=== PATIENT | female | born 2000 | race Hispanic/Latino ===

== ENCOUNTER 2019-11-06 23:05 | Emergency (ER) | payer OTHER, SELFPAY ==
[2019-11-07 00:10] LABS: Urine Blood 1+ (NEG); Urine Glucose NEGATIVE (NEG); Urine Protein NEGATIVE (NEG); Urine pH 7.5 (5.0-7.0)
[2019-11-07 00:24] LABS: Absolute Lymphocytes (CBC) 2.5 K/uL (0.7-4.9); Basophils % 0.6 % (0-1.3); Lymphocytes % 31.5 % (15.3-44.8); MPV 8.5 fL (7.6-11.3); RBC Red Blood Cell Count 4.54 M/uL (3.86-4.86)
[2019-11-07 00:39] LABS: ALT/SGPT 17 U/L (12-78); AST/SGOT 8 U/L (15-37); Albumin 4.3 g/dL (3.4-5.0); Alkaline Phosphatase 58 U/L (45-117); BUN Blood Urea Nitrogen 11 mg/dL (7-18); Bicarbonate 25 mmol/L (21-32); Bilirubin Direct < 0.1 mg/dL (0-0.2); Bilirubin Total 0.3 mg/dL (0.2-1.0); Glucose Level 96 mg/dL (74-106); Potassium 3.4 mmol/L (3.5-5.1); Protein, Total 8.7 g/dL (6.4-8.2); Sodium Level 139 mmol/L (136-145); Troponin (Emerg Dept Use Only) < 0.02 ng/mL (0.0-0.045)
--- NOTE | 2019-11-07 00:55 | ER ---
Nurse's Notes [facility] Name: Merlene Mitchell Age: 19 yrs Sex: Female : 2000 Arrival Date: 11/06/2019 Time: 23:06 Bed 18 Private MD: Diagnosis: Chest pain, unspecified;Palpitations Presentation: 11/05 23:17 Chief complaint: Patient states: chest pain at 7pm, feels like heart is squeezing, rv 6/10, with mild SOB, left side of the anterior chest wall. Coronavirus screen: Client denies travel out of the [place] in the last 14 days. At this time, the client does not indicate any symptoms associated with coronavirus-19. Ebola Screen: No symptoms or risks identified at this time. Initial Sepsis Screen: Does the patient meet any 2 criteria? No. Patient's initial sepsis screen is negative. Does the patient have a suspected source of infection? No. Patient's initial sepsis screen is negative. Risk Assessment: Do you want to hurt yourself or someone else? Patient reports no desire to harm self or others. Onset of symptoms was November 06, 2019 at 19:00. 23:17 Method Of Arrival: Ambulatory rv 23:17 Acuity: GURJIT 3 rv Triage Assessment: 23:20 General: Appears comfortable, Behavior is calm, cooperative. Pain: Complains of pain in rv anterior aspect of left upper chest Pain does not radiate. Pain currently is 0 out of 10 on a pain scale. Quality of pain is described as squeezing. EENT: No signs and/or symptoms were reported regarding the EENT system. Neuro: Level of Consciousness is awake, alert, obeys commands, Oriented to person, place, time, situation. Cardiovascular: Patient's skin is warm and dry. Respiratory: Airway is patent Respiratory effort is even, unlabored, Breath sounds are clear bilaterally. Derm: Skin is intact. 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 - Social history:: Smoking status: Patient denies any tobacco usage or history of. Screenin:22 Abuse screen: Denies threats or abuse. Denies injuries from another. Nutritional rv screening: No deficits noted. Tuberculosis screening: No symptoms or risk factors identified. Fall Risk None identified. Assessment: 23:58 Pain: Complains of pain in anterior aspect of right upper chest, anterior aspect of ll2 left upper chest, xyphoid area and mid-sternal area Quality of pain is described as pressure, sharp, shooting, Pain began suddenly, 4 hours ago. Is lasting 30 minutes. 23:59 Also complains of no other symptoms. General: Appears in no apparent distress. Behavior ll2 is calm, cooperative, appropriate for age. Neuro: Level of Consciousness is awake, alert, obeys commands, Oriented to person, place, time, situation. Cardiovascular: Capillary refill < 3 seconds Patient's skin is warm and dry. Chest pain is described as mild, quality is sharp, stabbing, is located in anterior began 4 hours prior to arrival. Respiratory: Airway is patent Respiratory effort is even, unlabored, Respiratory pattern is regular, symmetrical. GI: No signs and/or symptoms were reported involving the gastrointestinal system. : No signs and/or symptoms were reported regarding the genitourinary system. EENT: No signs and/or symptoms were reported regarding the EENT system. Derm: Skin is intact, is healthy with good turgor, Skin is dry, Skin is pink, warm \\T\\ dry. Skin temperature is warm. Musculoskeletal: Circulation, motion, and sensation intact. Range of motion: intact in all extremities. 11/06 00:03 General: pt states, "around 7 pm i was just sitting on the couch and i began having ll2 chest pains. my heart rate was high, but it only lasted about thirty minutes." . 00:46 Reassessment: No changes from previously documented assessment. Patient and/or family ll2 updated on plan of care and expected duration. Pain level reassessed. Patient is alert, oriented x 3, equal unlabored respirations, skin warm/dry/pink. Patient denies pain at this time. Vital Signs: 11/05 23:17 BP 135 / 82; Pulse 81; Resp 17; Temp 98.4; Pulse Ox 100% ; Weight 54.43 kg; Height 5 rv ft. 2 in. (157.48 cm); Pain 0/10; 11/06 00:02 BP 128 / 89; Pulse 86; Resp 14; Temp 98.4; Pulse Ox 100% on R/A; Pain 0/10; ll2 00:30 BP 121 / 73; Pulse 72; Resp 15; Pulse Ox 99% on R/A; Pain 0/10; ll2 09 23:17 Body Mass Index 21.95 (54.43 kg, 157.48 cm) rv ED Course: 11/05 23:06 Patient arrived in ED. am2 23:18 Gutierrez García NP is PHCP. pm1 23:18 Aldair Oliva MD is Attending Physician. pm1 23:19 Triage completed. rv 23:20 Arm band placed on right wrist. Patient placed in the treatment room, on a stretcher, rv Patient notified of wait time. 23:22 Patient has correct armband on for positive identification. Bed in low position. Call rv light in reach. Side rails up X 1. Pulse ox on. NIBP on. 23:22 Patient maintains SpO2 saturation greater than 95% on room air. rv 23:35 Annalee Harris, DEMETRIA is Primary Nurse. ll2 11/06 00:06 XRAY Chest (1 view) In Process Unspecified. EDMS 00:12 Placed in gown. public health engineer on. ll2 00:13 Inserted saline lock: 20 gauge in right antecubital area, using aseptic technique. ll2 00:14 Urine collected: EKG done. ll2 01:10 No provider procedures requiring assistance completed. IV discontinued, intact, ll2 bleeding controlled, No redness/swelling at site. Pressure dressing applied. Administered Medications: No medications were administered Outcome: 00:55 Discharge ordered by . pm1 01:10 Discharged to home ambulatory. ll2 01:10 Condition: stable 01:10 Discharge instructions given to patient, Instructed on discharge instructions, follow up and referral plans. Demonstrated understanding of instructions, follow-up care. 01:11 Patient left the ED. ll2 Signatures: Dispatcher [employer] EDAK Gutierrez García NP MANAGER OF ALLIED HEALTH SERVICES pm1 Nicolasa Owens am2 Kody Kwan RN RN rv Annalee Harris, DEMETRIA RN ll2
--- NOTE | 2019-11-07 00:55 | EDPHYS ---
Physician Documentation [facility] Name: Merlene Mitchell Age: 19 yrs Sex: Female : 2000 Arrival Date: 11/06/2019 Time: 23:06 Bed 18 Private MD: ED Physician Aldair Oliva HPI: 11/05 23:46 This 19 yrs old Female presents to ER via Ambulatory with complaints of Chest pm1 Pain, Palpitations. 23:46 The patient or guardian reports chest pain that is located primarily in the mid-sternal pm1 area. The pain does not radiate. Associated signs and symptoms: Pertinent positives: palpitations, Pertinent negatives: abdominal pain, cough, diaphoresis, headache, nausea, shortness of breath, vomiting. Duration: The patient or guardian reports a single episode, that is now resolved, that lasted 2 minute(s) occurred at 1900 today. Modifying factors: The symptoms are alleviated by nothing. the symptoms are aggravated by nothing. Severity of pain: in the emergency department the pain has resolved. The patient has not experienced similar symptoms in the past. 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 - Social history:: Smoking status: Patient denies any tobacco usage or history of. ROS: 23:46 Constitutional: Negative for fever, chills, and weight loss. pm1 23:46 Respiratory: Negative for shortness of breath, cough, wheezing, and pleuritic chest pain, Abdomen/GI: Negative for abdominal pain, nausea, vomiting, diarrhea, and constipation, Back: Negative for injury and pain, MS/Extremity: Negative for injury and deformity, Skin: Negative for injury, rash, and discoloration, Neuro: Negative for headache, weakness, numbness, tingling, and seizure. 23:46 Cardiovascular: Positive for chest pain, palpitations, Negative for edema, orthopnea. Exam: 23:46 Constitutional: This is a well developed, well nourished patient who is awake, alert, pm1 and in no acute distress. Head/Face: Normocephalic, atraumatic. Neck: Trachea midline, no thyromegaly or masses palpated, and no cervical lymphadenopathy. Supple, full range of motion without nuchal rigidity, or vertebral point tenderness. No Meningismus. Chest/axilla: Normal chest wall appearance and motion. Nontender with no deformity. No lesions are appreciated. 23:46 Skin: Warm, dry with normal turgor. Normal color with no rashes, no lesions, and no evidence of cellulitis. MS/ Extremity: Pulses equal, no cyanosis. Neurovascular intact. Full, normal range of motion. 23:46 Cardiovascular: Exam negative for acute changes, Rate: normal, Rhythm: regular, Pulses: no pulse deficits are appreciated. 23:46 Respiratory: Exam negative for acute changes, respiratory distress, shortness of breath. 23:46 Neuro: Exam negative for acute changes, Orientation: is normal, Mentation: is normal, Motor: is normal, moves all fours. Vital Signs: 23:17 BP 135 / 82; Pulse 81; Resp 17; Temp 98.4; Pulse Ox 100% ; Weight 54.43 kg; Height 5 rv ft. 2 in. (157.48 cm); Pain 0/10; 11/06 00:02 BP 128 / 89; Pulse 86; Resp 14; Temp 98.4; Pulse Ox 100% on R/A; Pain 0/10; ll2 00:30 BP 121 / 73; Pulse 72; Resp 15; Pulse Ox 99% on R/A; Pain 0/10; ll2 11/05 23:17 Body Mass Index 21.95 (54.43 kg, 157.48 cm) rv MDM: 11/05 23:18 Patient medically screened. pm1 11/06 00:54 Data reviewed: vital signs. Data interpreted: Pulse oximetry: on room air is 99 %. pm1 Interpretation: normal. Counseling: I had a detailed discussion with the patient and/or guardian regarding: the historical points, exam findings, and any diagnostic results supporting the discharge/admit diagnosis, lab results, radiology results, the need for outpatient follow up, to return to the emergency department if symptoms worsen or persist or if there are any questions or concerns that arise at home. 11/05 23:26 Order name: Basic Metabolic Panel; Complete Time: 00:54 pm1 11/05 23:26 Order name: CBC with Diff; Complete Time: 00:32 pm1 11/05 23:26 Order name: LFT's; Complete Time: 00:54 pm1 11/05 23:26 Order name: Troponin (emerg Dept Use Only); Complete Time: 00:54 pm1 11/05 23:26 Order name: UDS; Complete Time: 01:04 pm1 11/05 23:59 Order name: Urine Dipstick--Ancillary (enter results); Complete Time: 00:32 ar5 11/05 23:26 Order name: XRAY Chest (1 view) pm11/05 23:26 Order name: EKG; Complete Time: 23:27 pm11/05 23:26 Order name: Cardiac monitoring; Complete Time: 00:12 pm11/05 23:26 Order name: EKG - Nurse/Tech; Complete Time: 00:12 pm1 11/05 23:26 Order name: IV Saline Lock; Complete Time: 00:12 pm1 11/05 23:26 Order name: Labs collected and sent; Complete Time: 00:12 pm11/05 23:59 Order name: Urine --Ancillary (enter results); Complete Time: 00:32 ar5 11/05 23:26 Order name: O2 Sat Monitoring; Complete Time: 00:12 pm11/05 23:26 Order name: Urine Dipstick-Ancillary (obtain specimen); Complete Time: 23:57 pm1 11/05 23:26 Order name: Urine Test (obtain specimen); Complete Time: 23:57 pm1 Administered Medications: No medications were administered Disposition: 07:03 Co-signature as Attending Physician, Aldair Oliva MD I agree with the assessment and tw4 plan of care. Disposition: 11/07/19 00:55 Discharged to Home. Impression: Chest pain, unspecified, Palpitations. - Condition is Stable. - Discharge Instructions: Nonspecific Chest Pain, Palpitations. - Medication Reconciliation Form, Thank You Letter, Antibiotic Education, Prescription Opioid Use form. - Follow up: Emergency Department; When: As needed; Reason: Worsening of condition. Follow up: Private Physician; When: 2 - 3 days; Reason: Recheck today's complaints, Continuance of care, Re-evaluation by your physician. - Problem is new. - Symptoms have improved. Signatures: Dispatcher [employer] EDMS Gutierrez García, PAINT LINE OPERATOR PAINT LINE OPERATOR pm1 Aldair Oliva MD MD tw4 Kody Kwan RN RN Annalee Harris, RN RN ll2 Corrections: (The following items were deleted from the chart) 01:11 00:55 11/07/2019 00:55 Discharged to Home. Impression: Chest pain, unspecified; ll2 Palpitations. Condition is Stable. Forms are Medication Reconciliation Form, Thank You Letter, Antibiotic Education, Prescription Opioid Use. Follow up: Emergency Department; When: As needed; Reason: Worsening of condition. Follow up: Private Physician; When: 2 - 3 days; Reason: Recheck today's complaints, Continuance of care, Re-evaluation by your physician. Problem is new. Symptoms have improved. pm1
[2019-11-07 01:00] LABS: Barbiturates NEGATIVE (NEGATIVE); Benzodiazepines NEGATIVE (NEGATIVE); Cocaine NEGATIVE (NEGATIVE); METHAMPHETAM NEGATIVE (NEGATIVE); Methadone NEGATIVE (NEGATIVE); Opiates NEGATIVE (NEGATIVE); Phencyclidine NEGATIVE (NEGATIVE); THC Cannibis NEGATIVE (NEGATIVE)
--- NOTE | 2019-11-07 08:14 | RAD REPORT ---
EXAM DESCRIPTION: RAD - Chest Single View - 11/07/2019 12:05 am CLINICAL HISTORY: CHEST PAIN COMPARISON: None TECHNIQUE: AP portable chest image was obtained 11/07/2019 12:05 am . FINDINGS: Lungs are clear. Heart and vasculature are normal. No measurable pleural effusion and no p neumothorax. No acute bony abnormality seen. No acute aortic findings suspected. IMPRESSION: No acute cardiopulmonary process.
[2019-11-07 20:02] VITALS: TEMP 98.4
[2019-11-07 20:05] VITALS: BP 121/73; O2SAT 99
--- NOTE | 2019-11-08 20:03 | EKG ---
Test Date: 2019-11-06 Test Time: 23:42:48 Fiberglasser: ALISON MEASUREMENT RESULTS: Intervals: Rate: 80 DE: 138 QRSD: 76 QT: 358 QTc: 412 [place]: P: -22 DE: 138 QRS: 65 T: 45 INTERPRETIVE STATEMENTS: Normal sinus rhythm Normal ECG No previous ECG available for comparison Electronically Signed On 11-08-19 19:59:38 CDT by Steven Vieyra
== END 2019-11-07 01:11 | disposition home or self-care (01) ==
LOC: ER 23:05
DX: R00.2 Palpitations (principal)
CPT/HCPCS: 36415; 71045; 80048; 80076; 80307; 81003; 81025; 84484; 85025; 93005; 99285